=== PATIENT | male | born 1960 | race Caucasian/White ===

== ENCOUNTER 2023-12-27 16:15 | Emergency (ER) | payer OTHER | END 2023-12-27 17:00 | disposition left against medical advice (07) | LOC: ER 16:15 | DX: R10.9 Unspecified abdominal pain (principal); Z53.21 Procedure and treatment not carried out due to patient leaving prior to being seen by health care provider ==

== ENCOUNTER 2024-02-23 09:31 | Day surgery (SDC) | payer OTHER ==
[~2024-02-23] VITALS: Ht 175.3 cm; Wt 86.2 kg
[2024-02-23] MEDS ORDERED: PROPOFOL 10 MG/ML 20 ML IV ONE ×2 (11:33→11:43)
[2024-02-23 11:58] VITALS: PULSE 80; RESP 19; TEMP 97.7; O2SAT 92
--- NOTE | 2024-02-23 11:59 | DVHHP2 ---
GI H&P Pre-Op Assessment Date: 02/23/24 Chief complaint: colon cancer screening HPI: per clinic note Past medical history: per clinic note Past surgical history: per clinic note Family history: per clinic note Physical exam: General: NAD, AAOX3 HEENT: PERRL, no scleral icterus, normal hearing, gums without lesions or bleeding, oropharynx clear without erythema or exudate. Neck: Supple without enlargement of the thyroid, or lymphadenopathy. Chest: Normal size and shape, no tenderness, lung wood clear to auscultation and percussion, nonlabored breathing. Heart: RRR, no murmur Abdomen: non-distended, no tenderness to palpation, +BS, no hepatosplenomegaly Extremities: no edema Neurological: CN II-XII intact, sensation intact in all extremities, 5+ strength in all extremities Skin: No rashes, No jaundice Assessment: - colon cancer screening Plan: - Colonoscopy - Risks (bleeding, infection, perforation, reaction to sedation medications and cardiopulmonary arrest) and benefit of the procedure were explained to patient. Patient agrees to undergo the procedure. LYNETTE FIGUEROA MD Feb 23, 2024 11:59
--- NOTE | 2024-02-23 12:01 | DVHOP2 ---
Operative Report DATE OF OPERATION: 02/23/24 PROCEDURE: Colonoscopy. PREOPERATIVE INDICATION: The patient is a 64 -year-old male undergoing colonoscopy for colon cancer screening. POSTOPERATIVE DIAGNOSES: 1. 2 mm and 4 mm right colon polyps removed with hot snare and lost. 2. Diffuse diverticulosis with most in the left colon. 3. Internal hemorrhoids. PROCEDURE PERFORMED BY: John Gabriel M.D. SCOPE: Olympus videocolonoscope. ASA CLASS: 3 PREOPERATIVE MEDICATIONS: MAC with [employer] PROCEDURE IN DETAIL: After obtaining an informed consent, the patient was placed on left lateral decubitus position. He was then sedated with the above medications. A rectal examination was performed that was normal. The colo noscope was then passed through the anus into the rectosigmoid and through the descending, transverse, and ascending colon up to the cecum with visualization of the appendiceal orifice, base of the cecum and the ileocecal valve. A 2 mm and a 4 mm right colon polyps removed with hot snare and lost. There was diffuse diverticulosis with most in the left colon. There were internal hemorrhoids. The colonoscope was then withdrawn. The patient tolerated the procedure well without difficulty. WITHDRAWAL TIME: 8 minutes QUALITY OF THE PREP: [place] Bowel Prep score: 5 COMPLICATIONS : None SPECIMENS: None DISPOSITION: D/C to home PLAN: 1. Repeat colonoscopy in 5 years for colon cancer screening. JOHN GABRIEL MD Feb 23, 2024 12:01
--- NOTE | 2024-02-23 12:02 | DVHDS2 ---
Physician Discharge Progress N Final Diagnosis: colon polyps, diverticulosis Operations or Procedures: Operations or Procedures colonoscopy with snare polypectomy Condition on Discharge: Good Disposition: Home Discharge Instructions: Diet: Regular Activity: No Restrictions, As Tolerated Medications: resume with previous home medications Follow Up Care: Discharge Statement: "Patient was advised to return to the ER or call 911 if any headaches, dizziness, shortness of breath, chest pain, abdominal pain, bleeding, fevers, or worsening of medical condition. Patient was counseled about treatment plan, medications, possible side effects, patientverbalized understanding. All questions were answered to the best of my ability. This discharge took greater then 30 minutes in planning, reviewing documentation, counseling the patient, and discussing with other team members." LYNETTE FIGUEROA MD Feb 23, 2024 12:02
[2024-02-23 12:45] VITALS: BP 136/76; PULSE 70; RESP 18; O2SAT 95
== END 2024-02-23 12:47 | disposition home or self-care (01) ==
LOC: GI 09:31
PROVIDERS: ATTEND Internal Medicine Gastroenterology
DX: Z12.11 Encounter for screening for malignant neoplasm of colon (principal); K57.30 Diverticulosis of large intestine without perforation or abscess without bleeding; K63.5 Polyp of colon; K64.8 Other hemorrhoids; Z98.890 Other specified postprocedural states
CPT/HCPCS: 45385; J2704; J7030